=== PATIENT | female | born 1980 ===

== ENCOUNTER → 2018-10-24 | Outpatient (REF) ==
[2016-12-12 05:38] VITALS: BMI 42.0
[~2018-10-24] MED LIST: IBUP800T37 PO; INSU100V24 SQ; LEVO-3 PO; LEVO200T50 PO; LOR5/325 PO; PREN-127 PO
--- NOTE | 2018-10-24 16:25 | RADIOLOGY IMAGING REPORT ---
FACILITY: [facility] PATIENT NAME: Jazmine Dale : 1980 MR: [id number] V: [id number] EXAM DATE: ORDERING PHYSICIAN: AME CANALES TECHNOLOGIST: [place] [facility] [place]azmine [place] : 1980 Visit/Account:[id number] Date of Sevice: 10/24/2018 KNEE 3 VIEW LEFT Indication: Chronic knee pain Comparison: None available Findings: No evidence of fracture, dislocation, or acute osseous abnormality of the left knee. The joint spaces are well-maintained. No evidence of joint effusion. There is no focal soft tissue abnormality. No evidence of radiopaque foreign body. IMPRESSION: 1. Negative left knee Report Dictated By: Yohan Oneil at 10/24/2018 4:11 PM Report E-Signed By: Yohan Oneil at 10/24/2018 4:17 PM [email or web address]
== END ==
LOC: RAD 14:57
PROVIDERS: ATTEND Orthopaedic Surgery Orthopaedic Surgery of the Spine
DX: M25.562 Pain in left knee (principal)

== ENCOUNTER → 2018-11-02 | Outpatient (REF) ==
[2016-12-12 05:38] VITALS: BMI 42.0
--- NOTE | 2018-11-02 15:29 | RADIOLOGY IMAGING REPORT ---
FACILITY: [facility] [place] PATIENT NAME: Jazmine Dale : 1980 MR: [id number] V: [id number] EXAM DATE: ORDERING PHYSICIAN: AME CANALES TECHNOLOGIST: Location: [facility] Patient: Jazmine Dale : 1980 Visit/Account:[id number] Date of Sevice: 11/02/2018 MRI left knee Indication: Knee pain Comparison: None available. Technique: Multiplanar, multisequence MRI examination is performed of the left knee without contrast. Findings: Medial compartment: Minimal subtle tiny undersurface tear at the posterior horn medial meniscus noted. The articular cartilage surfaces are unremarkable. Lateral compartment: No discrete tear of the lateral meniscus. The articular cartilage surfaces are unremarkable. Patellofemoral compartment: There is partial-thickness chondral loss median ridge patella cartilage and mild chondral irregularit y lateral facet patella cartilage with no full-thickness chondral defect. Bones and marrow: No acute fracture or dislocation. Ligaments and tendons: ACL and PCL are intact. The extensor mechanism is intact. The MCL is intact. The iliotibial band, biceps femoris tendon, and the fibular collateral ligament is intact The popliteus tendon is also intact. Soft tissues: Small amount of fluid suprapatellar bursa. IMPRESSION: 1. Subtle tiny undersurface tear at the posterior horn medial meniscus 2. 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 Report Dictated By: Huey Kumari MD at 11/02/2018 3:19 PM Report E-Signed By: Huey Kumari MD at 11/02/2018 3:22 PM WSN:[id number]
== END ==
LOC: MRI 03:50
PROVIDERS: ATTEND Orthopaedic Surgery Orthopaedic Surgery of the Spine
DX: M25.562 Pain in left knee (principal)